=== PATIENT | female | born 2000 | race African-American/Black ===

== ENCOUNTER 2024-03-04 00:26 | Emergency (ER) | payer OTHER ==
[~2024-03-04] VITALS: Ht 177.8 cm; Wt 73.2 kg
[2024-03-04 00:30] VITALS: BP 130/79; PULSE 85; RESP 20; TEMP 98.6; O2SAT 99
[2024-03-04] MEDS ORDERED: RIZA10TA98 PO (00:35)
[2024-03-04] MEDS ORDERED: ONDA-245 PO (00:35)
[2024-03-04] MEDS ORDERED: NAPR-1025 PO (00:35)
== END 2024-03-04 00:54 | disposition left against medical advice (07) ==
LOC: EMS 00:29
DX: J02.9 Acute pharyngitis, unspecified (principal); R51.9 Headache, unspecified; Z53.21 Procedure and treatment not carried out due to patient leaving prior to being seen by health care provider